=== PATIENT | male | born 1980 | race Caucasian/White ===

== ENCOUNTER 2016-05-22 19:20 | Emergency (ER) | payer SELFPAY ==
[2016-05-22] MEDS ORDERED: MORPHINE 4 MG/ML 1ML SYRINGE As Ordered ONE (21:23)
[2016-05-22] MEDS ORDERED: ONDANSETRON 4MG/2ML VIAL (J2405) As Ordered ONE (21:23)
[2016-05-22 21:24] LABS: BASO # 0.1 K/mm3 (0.0-0.2); BASO % 1.5 % (0.0-1.0); EOS # 0.1 K/mm3 (0.0-0.50); EOS % 2.1 % (0.0-3.0); LARGE UNSTAINED CELL # 0.2 K/mm3 (0.0-0.4); LARGE UNSTAINED CELL % 2.8 % (0.0-4.0); LYMPH # 1.7 K/mm3 (1.5-4.5); LYMPH % 25.8 % (24.0-44.0); MEAN CORPUSCULAR HEMOGLOBIN 29.8 pg (27.0-33.0); MEAN CORPUSCULAR HGB CONC 34.2 g/dl (32.0-36.5); MEAN CORPUSCULAR VOLUME 87.1 fl (80.0-96.0); MONO # 0.6 K/mm3 (0.0-0.8); MONO % 8.6 % (0.0-5.0); NEUTROPHILS % 59.2 % (36.0-66.0); PLATELET COUNT, AUTOMATED 292 k/mm3 (150-450); RED CELL DISTRIBUTION WIDTH 12.2 % (11.5-14.5); WHITE BLOOD COUNT 6.7 K/mm3 (4.0-10.0)
[2016-05-22 21:40] LABS: ANION GAP 9 MEQ/L (8-16); BLOOD UREA NITROGEN 12 MG/DL (7-18); CALCIUM LEVEL 8.9 MG/DL (8.5-10.1); CARBON DIOXIDE LEVEL 28 MEQ/L (21-32); CHLORIDE LEVEL 100 MEQ/L (98-107); CREATININE FOR GFR 0.97 MG/DL (0.70-1.30); GLOMERULAR FILTRATION RATE > 60.0 (>60); GLUCOSE, FASTING 100 MG/DL (70-105); POTASSIUM SERUM 4.1 MEQ/L (3.5-5.1); SODIUM LEVEL 137 MEQ/L (136-145)
[2016-05-22 21:41] LABS: ERYTHROCYTE SEDIMENTATION RATE 5 mm/hr (0-15)
[2016-05-22] MEDS ORDERED: LIDOCAINE W/EPINEPHRINE 1% 20ML VIAL As Ordered ONE (22:37)
[2016-05-22] MEDS ORDERED: HYDROmorphone HCL 1 MG/ML SYRINGE (J1170) As Ordered ONE (23:08)
[2016-05-22 23:24] LABS: SYNOVIAL FLUID COLOR RED (YELLOW)
[2016-05-22 23:32] LABS: RBC ADVIA BF 0.06; RBC CALC. BF 60000 (< 10mm3 cells/uL); WBC ADVIA BF 13.6; WBC CALC. BF 13600 cells/uL (0-20)
[2016-05-22 23:34] LABS: BF DIFF IF INDICATED? YES (NO)
[2016-05-23] MEDS ORDERED: NORCO 5/325MG TABLET (BULK) As Ordered ONE (00:14)
[2016-05-23 00:18] LABS: CC BF DIFF EXAM UNSPUN; HCT SOURCE RT KNEE
--- NOTE | 2016-05-23 00:39 | EDDOCDS ---
Physician Documentation [facility] Name: Jose Guadalupe Bah Age: 35 yrs Sex: Male : 1980 Arrival Date: 05/22/2016 Time: 19:20 Bed TR7 Private MD: Disposition: 05/23/16 00:04 Discharged to Home/Self Care. Impression: Effusion, knee - RIGHT KNEE WITH CELLULITIS. - Condition is Stable. - Discharge Instructions: Cellulitis, Knee Effusion. - Medication Reconciliation, Local Pharmacy Hours form. - Follow up: Vicente Ferrell; When: Tomorrow; Reason: Recheck today's complaints, Continuance of care. Follow up: Private Physician; When: Tomorrow; Reason: Recheck today's complaints, Continuance of care. - Problem is new. - Symptoms have improved. - Notes: CONTINUE WITH AUGMENTIN AND CLINDAMYCIN, FOLLOW UP WITH DR FERRELL OR WITH THE ORTHOPEDIC DOCTOR THAT YOU WERE REFERRED TO FROM [facility], WE ARE AWAITING RESULTS OF YOUR GRAM STAIN, RETURN TO THE ER IF THE SYMPTOMS WORSEN OR BECOME CONCERNING Historical: - Allergies: no known allergies; - Home Meds: 1. Augmentin 875-125 mg Oral tab 1 tab every 12 hours (Last dose: 05/22/2016) 2. clindamycin HCl 300 mg Oral cap every 6 hours (Last dose: 05/22/2016) 3. Motrin 800 mg Oral tab every 8 hours 4. hydromorphone 2 mg Oral tab every 6 hours - PMHx: none; - PSHx: none; - Social history: Smoking status: Patient uses tobacco products, heavy tobacco smoker. No barriers to communication noted, The patient speaks fluent [place]ine[place], Speaks appropriately for age. - Family history: Not pertinent. - : The pt / caregiver states he / she is not on anticoagulants. Home medication list is obtained from the patient. - Exposure Risk Screening:: None identified. Vital Signs: 05/22 19:22 BP 152 / 71; Pulse 88; Resp 18; Temp 96.3(O); Pulse Ox 99% on R/A; Weight 124.74 kg / sar1 275 lbs (R); Height 6 ft. 0 in. (182.88 cm); Pain 3/10; 05/23 00:12 BP 179 / 91 LA Sitting (auto/reg); Pulse 58; Resp 20 S; Temp 98.5(T); Pulse Ox 95% on cln R/A; Pain 5/10; 05/22 19:22 Body Mass Index 37.30 (124.74 kg, 182.88 cm) sar1 Procedures: 05/22 23:01 Joint aspiration: Aspiration of right knee using 18 gauge needle, Removed cloudy fluid, cs11 yellow fluid, Specimen sent to lab. Patient tolerated well. Very thick yellow material captured with slow collection - then did turn bloody.. MDM: 20:59 IV Saline Lock ordered. ck7 20:59 NS 0.9% 1000 ml IV at bolus once ordered. ck7 20:59 morphine 4 mg IVP once ordered. ck7 20:59 Ondansetron 4 mg IVP once ordered. ck7 21:00 CBC with Diff Ordered. EDMS 21:00 MED Profile Ordered. EDMS 21:00 ESR Ordered. EDMS 21:00 CRP Ordered. EDMS 21:19 [facility] ordered. ck7 21:24 [facility] [place] Order complete. tmm1 21:43 Financial registration complete. ks16 21:46 CBC with Diff Reviewed. ck7 21:46 CRP Reviewed. ck7 21:46 MED Profile Reviewed. ck7 21:46 ESR Reviewed. ck7 22:05 [facility] Payment Agreement was scanned into [employer] and attached to record. ks16 22:36 Lidocaine-Epinephrine 1 %-1:100,000 10 ml Infiltration once; to bedside ordered. ck7 23:02 Cell Count Synovial Fluid Ordered. EDMS 23:02 Body Fluid Culture And Gs - Most Sources Ordered. EDMS 23:04 Dilaudid - HYDROmorphone 0.5 mg IVP once ordered. cs11 23:35 Cell Count Synovial Fluid Reviewed. ck7 05/23 00:05 HYDROcodone-acetaminophen 4 pack- 5 mg-325 mg 1 packets PO Per package directions; ck7 Dispense with patient. 1 po q4h prn for pain ordered. 00:24 Cell Count Synovial Fluid Reviewed. ck7 Administered Medications: 05/22 21:20 Drug: NS 0.9% 1000 ml [sodium chloride 0.9 % intravenous solution] Route: IV; Rate: ttb bolus; Site: left antecubital; 21:20 Drug: Ondansetron 4 mg [ondansetron HCl 2 mg/mL intravenous solution (2 mL)] Route: ttb IVP; Site: left antecubital; 21:30 Drug: morphine 4 mg [morphine 4 mg/mL intravenous cartridge (1 mL)] Route: IVP; Site: ttb left antecubital; 22:39 Drug: Lidocaine-Epinephrine 10 ml [lidocaine-epinephrine 1 %-1:100,000 injection jmb solution (10 mL)] {Note: placed at bedside for administering provider.} Route: Infiltration; 23:03 CANCELLED (Other Intervention Used): Dilaudid - HYDROmorphone 1 mg IVP once cs11 23:11 Drug: Dilaudid - HYDROmorphone 0.5 mg [hydromorphone 1 mg/mL injection syringe (0.5 jmb mL)] Route: IVP; Site: left antecubital; 05/23 00:15 Drug: HYDROcodone-acetaminophen 4 pack- 1 packets [hydrocodone 5 mg-acetaminophen 325 ka4 mg tablet (1 tabs)] {Co-Signature: sergio (Vahid Padilla RN).} Route: PO; 00:16 Follow up: Response: Med's dispensed home ka4 Signatures: Dispatcher [employer] EDNette GregoryRN RN rs3 Kings Lange, RPA-C RPA-Cck7 Osman Abernathy, DO cs11 Gabriela Mays RN RN ttb McLear, Theresa, MICA PASTER MICA PASTER tmm1 Vahid Padilla RN RN jmb Lizbeth Rodriguez, Reg Reg ks16 Therese Bassett CHEMISTRY DEPARTMENT CHAIR ka4 Vahid hill The chart was reviewed and I authenticate all verbal orders and agree with the evaluation and treatment provided.Corrections: (The following items were deleted from the chart) 05/22 23:03 23:03 Dilaudid - HYDROmorphone 1 mg IVP once ordered. cs11 cs11 Attachments: 22:05 [facility] Payment Agreement ks16 MTDD
--- NOTE | 2016-05-23 00:40 | EDDOCDS ---
Nurse's Notes [facility] Name: Jose Guadalupe Bah Age: 35 yrs Sex: Male : 1980 Arrival Date: 05/22/2016 Time: 19:20 Bed TR7 Private MD: Diagnosis: Effusion, knee-RIGHT KNEE WITH CELLULITIS Presentation: 05/22 19:34 Presenting complaint: Patient states: Was seen in [place] ER for right knee pain. rs3 Treated for septic knee received IV antibiotic. was advised for admission. patient signed out AMA for family reasons. was sent home on clindamycin, Augmentin. unable to check in near by ER for the 2 days. here today reports increased swelling/redness/pain. Adult Sepsis Screening: The patient does not have new or worsening altered mentation. Patient's respiratory rate is less than 22. Systolic blood pressure is greater than 100. Patient has a qSOFA score of 0- Negative Sepsis Screen. Suicide/Homicide risk assessment- the patient denies having any suicidal and/or homicidal ideations and does not present with any other emotional, behavioral or mental health complaints. Status: Patient is not a elevator service mechanic or dependent. Transition of care: patient was not received from another setting of care. 19:34 Acuity: TEJAS Level 3 rs3 19:34 Method Of Arrival: Walkin/Carried/Asstd rs3 Triage Assessment: 19:43 General: Appears in no apparent distress. Pain: Location: right knee. Pt Declines HIV rs3 testing. Historical: - Allergies: no known allergies; - Home Meds: 1. Augmentin 875-125 mg Oral tab 1 tab every 12 hours (Last dose: 05/22/2016) 2. clindamycin HCl 300 mg Oral cap every 6 hours (Last dose: 05/22/2016) 3. Motrin 800 mg Oral tab every 8 hours 4. hydromorphone 2 mg Oral tab every 6 hours - PMHx: none; - PSHx: none; - Social history: Smoking status: Patient uses tobacco products, heavy tobacco smoker. No barriers to communication noted, The patient speaks fluent Yoruba, Speaks appropriately for age. - Family history: Not pertinent. - : The pt / caregiver states he / she is not on anticoagulants. Home medication list is obtained from the patient. - Exposure Risk Screening:: None identified. Screenin:30 Screening information is obtained from the patient. Fall risk: No risks identified. ttb Assistance ADL's: requires no assistance with activities of daily living. Abuse/DV Screen: The patient / caregiver reports he/she is: not in a situation that causes fear, pain or injury. Nutritional screening: No deficits noted. Advance Directives: Currently, there is no health care proxy. home support is adequate. Assessment: 21:30 General: Appears in no apparent distress, well nourished, well groomed, Behavior is ttb appropriate for age, cooperative, pleasant. Pain: Location: right knee 07/29 no radiation. Neurological: Level of Consciousness is awake, alert. Cardiovascular: Chest pain is denied. Respiratory: No deficits noted. Airway is patent Respiratory effort is even, unlabored, Denies cough, shortness of breath. GI: Denies nausea, vomiting, pain. Derm: Skin is normal. Musculoskeletal: Range of motion limited in right knee Swelling present in right knee. Injury Description: No known injury. 22:10 Reassessment: Patient appears in no apparent distress at this time. Pt resting on ttb stretcher. SO at bedside. PA speaking with MD at this time. . 23:08 Reassessment: Patient appears in no apparent distress at this time. pt in pain after ttb joint aspiration. Meds to be given. Labs sent per orders. Pt resting on stretcher with SO at bedside. Primary RN to give meds. . 23:15 General: Appears in no apparent distress, comfortable, Behavior is appropriate for age, jmb cooperative, Patient laying on stretcher with friend at bedside. Patient voices no complaints at this time. . Neurological: Level of Consciousness is awake, alert, obeys commands, Oriented to person, place, time, Speech is normal, Facial symmetry appears normal, Facial symmetry: tongue is midline. Respiratory: Airway is patent Respiratory effort is even, unlabored, Respiratory pattern is regular, symmetrical. 05/23 00:25 General: Appears in no apparent distress, comfortable, Behavior is appropriate for age, ka4 cooperative, pleasant. Respiratory: Airway is patent Respiratory effort is even, unlabored, Respiratory pattern is regular, symmetrical. Derm:. Vital Signs: 05/22 19:22 BP 152 / 71; Pulse 88; Resp 18; Temp 96.3(O); Pulse Ox 99% on R/A; Weight 124.74 kg sar1 (R); Height 6 ft. 0 in. (182.88 cm); Pain 3/10; 05/23 00:12 BP 179 / 91 LA Sitting (auto/reg); Pulse 58; Resp 20 S; Temp 98.5(T); Pulse Ox 95% on cln R/A; Pain 5/10; 05/22 19:22 Body Mass Index 37.30 (124.74 kg, 182.88 cm) [facility] Vitals: 05/22 19:22 Log In Time: May 22, 2016 at 19:22. [facility] ED Course: 19:22 Patient visited by Marisol Perez, Tooth Cutter Contact Wheel. sar1 19:22 Patient moved to Waiting sar1 19:23 Patient moved to Pre RCE sar1 19:41 Triage Initiated rs3 20:12 Patient visited by Janay Lovelace,WILLIS. ms18 20:12 Patient moved to Triage 2 ms18 20:51 Kings Lange RPA-C is PHCP. ck7 20:51 Osman Abernathy DO is Attending Physician. ck7 20:51 Patient visited by Kings Lange RPA-C. ck7 21:00 Patient moved to I3 / M3 ms18 21:20 Patient visited by Jaany Lovelace RN. ms18 21:20 CRP Sent. ms18 21:20 ESR Sent. ms18 21:20 MED Profile Sent. ms18 21:21 CBC with Diff Sent. ms18 21:21 Inserted saline lock: 18 gauge in left antecubital area and blood collected. The ms18 patient tolerated the procedure well. 21:30 The patient / caregiver is instructed regarding the plan of care and ED course. ttb Accompanied by Significant Other, Patient has correct armband on for positive identification. Placed in gown. 21:30 Labs drawn. (by ED staff). ttb 21:59 Patient visited by Kings Lange RPA-C. ck7 22:05 [facility] Payment Agreement was scanned into [employer] and attached to record. ks16 22:11 Patient visited by Gabriela Mays RN. ttb 22:44 Patient visited by Kings Lange RPA-C. ck7 23:07 Cell Count Synovial Fluid Sent. jmb 23:07 Body Fluid Culture And Gs - Most Sources Sent. jmb 23:08 Wound culture sent to lab. ttb 23:16 Patient visited by Vahid Padilla RN. jmb 23:49 Patient visited by Kings Lange RPA-C. ck7 05/23 00:03 Vicente Chowdary is Referral Physician. ck7 00:13 Patient visited by Ellie Solares PCA. cln 00:25 Patient moved to [facility] jmb 00:25 Discontinued IV lock intact, bleeding controlled, pressure dressing applied, No ka4 redness/swelling at site. No procedures done that require assistance. 00:26 Patient visited by Therese Bassett LPN. ka4 Administered Medications: 05/22 21:20 Drug: NS 0.9% 1000 ml [sodium chloride 0.9 % intravenous solution] Route: IV; Rate: ttb bolus; Site: left antecubital; 21:20 Drug: Ondansetron 4 mg [ondansetron HCl 2 mg/mL intravenous solution (2 mL)] Route: ttb IVP; Site: left antecubital; 21:30 Drug: morphine 4 mg [morphine 4 mg/mL intravenous cartridge (1 mL)] Route: IVP; Site: ttb left antecubital; 22:39 Drug: Lidocaine-Epinephrine 10 ml [lidocaine-epinephrine 1 %-1:100,000 injection jmb solution (10 mL)] {Note: placed at bedside for administering provider.} Route: Infiltration; 23:03 CANCELLED (Other Intervention Used): Dilaudid - HYDROmorphone 1 mg IVP once cs11 23:11 Drug: Dilaudid - HYDROmorphone 0.5 mg [hydromorphone 1 mg/mL injection syringe (0.5 jmb mL)] Route: IVP; Site: left antecubital; 05/23 00:15 Drug: HYDROcodone-acetaminophen 4 pack- 1 packets [hydrocodone 5 mg-acetaminophen 325 ka4 mg tablet (1 tabs)] {Co-Signature: sergio (Vahid Padilla RN).} Route: PO; 00:16 Follow up: Response: Med's dispensed home ka4 Order Results: Lab Order: CBC with Diff; SPEC'M 05/22/16 21:19 Test: WHITE BLOOD COUNT; Value: 6.7; Range: 4.0-10.0; Units: K/mm3; Status: F Test: RED BLOOD COUNT; Value: 5.32; Range: 4.30-6.10; Units: M/mm3; Status: F Test: HEMOGLOBIN; Value: 15.9; Range: 14.0-18.0; Units: g/dl; Status: F Test: HEMATOCRIT; Value: 46.4; Range: 42.0-52.0; Units: %; Status: F Test: MEAN CORPUSCULAR VOLUME; Value: 87.1; Range: 80.0-96.0; Units: fl; Status: F Test: MEAN CORPUSCULAR HEMOGLOBIN; Value: 29.8; Range: 27.0-33.0; Units: pg; Status: F Test: MEAN CORPUSCULAR HGB CONC; Value: 34.2; Range: 32.0-36.5; Units: g/dl; Status: F Test: RED CELL DISTRIBUTION WIDTH; Value: 12.2; Range: 11.5-14.5; Units: %; Status: F Test: PLATELET COUNT, AUTOMATED; Value: 292; Range: 150-450; Units: k/mm3; Status: F Test: NEUTROPHILS %; Value: 59.2; Range: 36.0-66.0; Units: %; Status: F Test: LYMPH %; Value: 25.8; Range: 24.0-44.0; Units: %; Status: F Test: MONO %; Value: 8.6; Range: 0.0-5.0; Abnormal: Above high normal; Units: %; Status: F Test: EOS %; Value: 2.1; Range: 0.0-3.0; Units: %; Status: F Test: BASO %; Value: 1.5; Range: 0.0-1.0; Abnormal: Above high normal; Units: %; Status: F Test: LARGE UNSTAINED CELL %; Value: 2.8; Range: 0.0-4.0; Units: %; Status: F Test: NEUTROPHILS #; Value: 4.0; Range: 1.8-7.7; Units: K/mm3; Status: F Test: LYMPH #; Value: 1.7; Range: 1.5-4.5; Units: K/mm3; Status: F Test: MONO #; Value: 0.6; Range: 0.0-0.8; Units: K/mm3; Status: F Test: EOS #; Value: 0.1; Range: 0.0-0.50; Units: K/mm3; Status: F Test: BASO #; Value: 0.1; Range: 0.0-0.2; Units: K/mm3; Status: F Test: LARGE UNSTAINED CELL #; Value: 0.2; Range: 0.0-0.4; Units: K/mm3; Status: F Lab Order: MED Profile; SPEC'M 05/22/16 21:19 Test: GLUCOSE, FASTING; Value: 100; Range: 70-105; Units: MG/DL; Status: F Test: BLOOD UREA NITROGEN; Value: 12; Range: 7-18; Units: MG/DL; Status: F Test: CREATININE FOR GFR; Value: 0.97; Range: 0.70-1.30; Units: MG/DL; Status: F Test: GLOMERULAR FILTRATION RATE; Value: > 60.0; Range: >60; Status: F Test: SODIUM LEVEL; Value: 137; Range: 136-145; Units: MEQ/L; Status: F Test: POTASSIUM SERUM; Value: 4.1; Range: 3.5-5.1; Units: MEQ/L; Status: F Test: CHLORIDE LEVEL; Value: 100; Range: 98-107; Units: MEQ/L; Status: F Test: CARBON DIOXIDE LEVEL; Value: 28; Range: 21-32; Units: MEQ/L; Status: F Test: ANION GAP; Value: 9; Range: 8-16; Units: MEQ/L; Status: F Test: CALCIUM LEVEL; Value: 8.9; Range: 8.5-10.1; Units: MG/DL; Status: F Test Note: ; Units are mL/min/1.73 m2 Chronic Kidney Disease Staging per NKF: Stage I & II GFR >=60 Normal to Mildly Decreased Stage III GFR 30-59 Moderately Decreased Stage IV GFR 15-29 Severely Decreased Stage V GFR <15 Very Little GFR Left ESRD GFR <15 on EDGE POLISHER Lab Order: ESR; SPEC'M 05/22/16 21:19 Test: ERYTHROCYTE SEDIMENTATION RATE; Value: 5; Range: 0-15; Units: mm/hr; Status: F Lab Order: CRP; SPEC'M 05/22/16 21:19 Test: C REACTIVE PROTEIN QUANTITATIV; Value: 2.07; Range: 0.00-0.30; Abnormal: Above high normal; Units: MG/DL; Status: F Lab Order: Cell Count Synovial Fluid; SPEC'M 05/22/16 23:05 Test: SOURCE, BODY FLUID; Value: RT KNEE; Status: F Test: SYNOVIAL FLUID COLOR; Value: RED; Range: YELLOW; Status: F Test: APPEARANCE, BODY FLUID; Value: CLOUDY; Range: CLEAR; Status: F Test: WBC CALC. BF; Value: 00173; Range: 0-20; Abnormal: Above high normal; Units: cells/uL; Status: F Test: HEMATOCRIT, BODY FLUID; Value: < 1.0; Units: %; Status: F Test: HCT SOURCE; Value: RT KNEE; Status: F Test: RBC CALC. BF; Value: 02089; Range: < 10mm3 cells/uL; Status: F Test: NEUTROPHILS, BODY FLUID; Value: 93; Units: %; Status: F Test: LYMPHOCYTES, BODY FLUID; Value: 7; Units: %; Status: F Outcome: 00:04 Discharge ordered by Provider. ck7 00:24 Discharge Assessment: Patient awake, alert and oriented x 3. No cognitive and/or ka4 functional deficits noted. Patient verbalized understanding of disposition instructions. The following High Risk Discharge criteria are identified: None. Discharged to home via wheelchair, with significant other. Condition: good Condition: stable. Discharge instructions given to patient, Instructed on discharge instructions, follow up and referral plans. medication usage, no driving heavy equipment, no drinking with medication, Demonstrated understanding of instructions, medications, Pt was receptive of discharge instructions/ teaching. Property :Personal belongings accompany Pt. 00:25 Discharge Assessment: Patient awake, alert and oriented x 3. No cognitive and/or ka4 functional deficits noted. Patient verbalized understanding of disposition instructions. patient administered narcotics - yes. Discharge Assessment: patient administered narcotics - yes. Pt provided with safe discharge. No special radiology studies were completed. 00:38 Patient left the ED. b Signatures: Nette Cartwright RN RN rs3 Kings Lange RPA-C RPA-Cck7 Gabriela Mays, RN RN Vahid Rhodes,RN RN jmb Therese Bassett,RAILWAY SIGNAL TECHNICIAN RAILWAY SIGNAL TECHNICIAN ka4 Janay Lovelace,RN RN ms18 Marisol Perez, Tooth Cutter Contact Wheel Unit sar1 Lizbeth Rodriguez, Reg Reg ks16 Sujatha, Crystal, ICU MANAGER ICU MANAGER cln Osman Abernathy DO cs11 Vahid hill MTDD
--- NOTE | 2016-05-25 01:39 | EDDOCDS ---
Physician Documentation [facility] Name: Jose Guadalupe Bah Age: 35 yrs Sex: Male : 1980 Arrival Date: 05/22/2016 Time: 19:20 Bed TR7 Private MD: Disposition: 05/23/16 00:04 Discharged to Home/Self Care. Impression: Effusion, knee - RIGHT KNEE WITH CELLULITIS. - Condition is Stable. - Discharge Instructions: Cellulitis, Knee Effusion. - Medication Reconciliation, Local Pharmacy Hours form. - Follow up: Vicente Ferrell; When: Tomorrow; Reason: Recheck today's complaints, Continuance of care. Follow up: Private Physician; When: Tomorrow; Reason: Recheck today's complaints, Continuance of care. - Problem is new. - Symptoms have improved. - Notes: CONTINUE WITH AUGMENTIN AND CLINDAMYCIN, FOLLOW UP WITH DR FERRELL OR WITH THE ORTHOPEDIC DOCTOR THAT YOU WERE REFERRED TO FROM [facility], WE ARE AWAITING RESULTS OF YOUR GRAM STAIN, RETURN TO THE ER IF THE SYMPTOMS WORSEN OR BECOME CONCERNING Historical: - Allergies: no known allergies; - Home Meds: 1. Augmentin 875-125 mg Oral tab 1 tab every 12 hours (Last dose: 05/22/2016) 2. clindamycin HCl 300 mg Oral cap every 6 hours (Last dose: 05/22/2016) 3. Motrin 800 mg Oral tab every 8 hours 4. hydromorphone 2 mg Oral tab every 6 hours - PMHx: none; - PSHx: none; - Social history: Smoking status: Patient uses tobacco products, heavy tobacco smoker. No barriers to communication noted, The patient speaks fluent Jamaican, Speaks appropriately for age. - Family history: Not pertinent. - : The pt / caregiver states he / she is not on anticoagulants. Home medication list is obtained from the patient. - Exposure Risk Screening:: None identified. Vital Signs: 05/22 19:22 BP 152 / 71; Pulse 88; Resp 18; Temp 96.3(O); Pulse Ox 99% on R/A; Weight 124.74 kg / sar1 275 lbs (R); Height 6 ft. 0 in. (182.88 cm); Pain 3/10; 05/23 00:12 BP 179 / 91 LA Sitting (auto/reg); Pulse 58; Resp 20 S; Temp 98.5(T); Pulse Ox 95% on cln R/A; Pain 5/10; 05/22 19:22 Body Mass Index 37.30 (124.74 kg, 182.88 cm) sar1 Procedures: 05/22 23:01 Joint aspiration: Aspiration of right knee using 18 gauge needle, Removed cloudy fluid, cs11 yellow fluid, Specimen sent to lab. Patient tolerated well. Very thick yellow material captured with slow collection - then did turn bloody.. MDM: 20:59 IV Saline Lock ordered. ck7 20:59 NS 0.9% 1000 ml IV at bolus once ordered. ck7 20:59 morphine 4 mg IVP once ordered. ck7 20:59 Ondansetron 4 mg IVP once ordered. ck7 21:00 CBC with Diff Ordered. EDMS 21:00 MED Profile Ordered. EDMS 21:00 ESR Ordered. EDMS 21:00 CRP Ordered. EDMS 21:19 [facility] Order ordered. ck7 21:24 [facility] Covers Inspector Order complete. tmm1 21:43 Financial registration complete. ks16 21:46 CBC with Diff Reviewed. ck7 21:46 CRP Reviewed. ck7 21:46 MED Profile Reviewed. ck7 21:46 ESR Reviewed. ck7 22:05 [facility] Payment Agreement was scanned into [employer] and attached to record. ks16 22:36 Lidocaine-Epinephrine 1 %-1:100,000 10 ml Infiltration once; to bedside ordered. ck7 23:02 Cell Count Synovial Fluid Ordered. EDMS 23:02 Body Fluid Culture And Gs - Most Sources Ordered. EDMS 23:04 Dilaudid - HYDROmorphone 0.5 mg IVP once ordered. cs11 23:35 Cell Count Synovial Fluid Reviewed. ck7 05/23 00:05 HYDROcodone-acetaminophen 4 pack- 5 mg-325 mg 1 packets PO Per package directions; ck7 Dispense with patient. 1 po q4h prn for pain ordered. 00:24 Cell Count Synovial Fluid Reviewed. ck7 05:04 T-Sheet-- Draft Copy was scanned into [employer] and attached to record. hs2 Administered Medications: 05/22 21:20 Drug: NS 0.9% 1000 ml [sodium chloride 0.9 % intravenous solution] Route: IV; Rate: ttb bolus; Site: left antecubital; 21:20 Drug: Ondansetron 4 mg [ondansetron HCl 2 mg/mL intravenous solution (2 mL)] Route: ttb IVP; Site: left antecubital; 21:30 Drug: morphine 4 mg [morphine 4 mg/mL intravenous cartridge (1 mL)] Route: IVP; Site: ttb left antecubital; 22:39 Drug: Lidocaine-Epinephrine 10 ml [lidocaine-epinephrine 1 %-1:100,000 injection jmb solution (10 mL)] {Note: placed at bedside for administering provider.} Route: Infiltration; 23:03 CANCELLED (Other Intervention Used): Dilaudid - HYDROmorphone 1 mg IVP once cs11 23:11 Drug: Dilaudid - HYDROmorphone 0.5 mg [hydromorphone 1 mg/mL injection syringe (0.5 jmb mL)] Route: IVP; Site: left antecubital; 05/23 00:15 Drug: HYDROcodone-acetaminophen 4 pack- 1 packets [hydrocodone 5 mg-acetaminophen 325 ka4 mg tablet (1 tabs)] {Co-Signature: sergio (Vahid Padilla RN).} Route: PO; 00:16 Follow up: Response: Med's dispensed home ka4 Signatures: Dispatcher [employer] Nette Flowers,RN RN rs3 Kings Lange, RPA-C RPA-Cck7 Osman Abernathy, DO cs11 Gabriela Mays RN RN ttb McLear, Theresa, [employer] GOL[employer] REPAIRERS [employer] REPAIR[employer] tmm1 Vahid Padilla RN RN jmb Lizbeth Rodriguez, Reg Reg ks16 Shanika Hooks, Reg Reg hs2 Therese Bassett MECHANICAL INTERN ka4 Vahid hill The chart was reviewed and I authenticate all verbal orders and agree with the evaluation and treatment provided.Corrections: (The following items were deleted from the chart) 05/22 23:03 23:03 Dilaudid - HYDROmorphone 1 mg IVP once ordered. cs11 cs11 Attachments: 22:05 [facility] Payment Agreement ks16 05/23 05:04 T-Sheet-- Draft Copy hs2 Chart Complete MTDD
--- NOTE | 2016-05-25 01:39 | EDDOCDS ---
Physician Documentation [facility] Name: Jose Guadalupe Bah Age: 35 yrs Sex: Male : 1980 Arrival Date: 05/22/2016 Time: 19:20 Bed TR7 Private MD: Disposition: 05/23/16 00:04 Discharged to Home/Self Care. Impression: Effusion, knee - RIGHT KNEE WITH CELLULITIS. - Condition is Stable. - Discharge Instructions: Cellulitis, Knee Effusion. - Medication Reconciliation, Local Pharmacy Hours form. - Follow up: Vicente Frerell; When: Tomorrow; Reason: Recheck today's complaints, Continuance of care. Follow up: Private Physician; When: Tomorrow; Reason: Recheck today's complaints, Continuance of care. - Problem is new. - Symptoms have improved. - Notes: CONTINUE WITH AUGMENTIN AND CLINDAMYCIN, FOLLOW UP WITH DR FERRELL OR WITH THE ORTHOPEDIC DOCTOR THAT YOU WERE REFERRED TO FROM [facility], WE ARE AWAITING RESULTS OF YOUR GRAM STAIN, RETURN TO THE ER IF THE SYMPTOMS WORSEN OR BECOME CONCERNING Historical: - Allergies: no known allergies; - Home Meds: 1. Augmentin 875-125 mg Oral tab 1 tab every 12 hours (Last dose: 05/22/2016) 2. clindamycin HCl 300 mg Oral cap every 6 hours (Last dose: 05/22/2016) 3. Motrin 800 mg Oral tab every 8 hours 4. hydromorphone 2 mg Oral tab every 6 hours - PMHx: none; - PSHx: none; - Social history: Smoking status: Patient uses tobacco products, heavy tobacco smoker. No barriers to communication noted, The patient speaks fluent Eritrean, Speaks appropriately for age. - Family history: Not pertinent. - : The pt / caregiver states he / she is not on anticoagulants. Home medication list is obtained from the patient. - Exposure Risk Screening:: None identified. Vital Signs: 05/22 19:22 BP 152 / 71; Pulse 88; Resp 18; Temp 96.3(O); Pulse Ox 99% on R/A; Weight 124.74 kg / sar1 275 lbs (R); Height 6 ft. 0 in. (182.88 cm); Pain 3/10; 05/23 00:12 BP 179 / 91 LA Sitting (auto/reg); Pulse 58; Resp 20 S; Temp 98.5(T); Pulse Ox 95% on cln R/A; Pain 5/10; 05/22 19:22 Body Mass Index 37.30 (124.74 kg, 182.88 cm) sar1 Procedures: 05/22 23:01 Joint aspiration: Aspiration of right knee using 18 gauge needle, Removed cloudy fluid, cs11 yellow fluid, Specimen sent to lab. Patient tolerated well. Very thick yellow material captured with slow collection - then did turn bloody.. MDM: 20:59 IV Saline Lock ordered. ck7 20:59 NS 0.9% 1000 ml IV at bolus once ordered. ck7 20:59 morphine 4 mg IVP once ordered. ck7 20:59 Ondansetron 4 mg IVP once ordered. ck7 21:00 CBC with Diff Ordered. EDMS 21:00 MED Profile Ordered. EDMS 21:00 ESR Ordered. EDMS 21:00 CRP Ordered. ED[facility] ck7 21:24 [facility]inter Order complete. tmm1 21:43 Financial registration complete. ks16 21:46 CBC with Diff Reviewed. ck7 21:46 CRP Reviewed. ck7 21:46 MED Profile Reviewed. ck7 21:46 ESR Reviewed. ck7 22:05 [facility] Payment Agreement was scanned into ViewReple and attached to record. ks16 22:36 Lidocaine-Epinephrine 1 %-1:100,000 10 ml Infiltration once; to bedside ordered. ck7 23:02 Cell Count Synovial Fluid Ordered. EDMS 23:02 Body Fluid Culture And Gs - Most Sources Ordered. EDMS 23:04 Dilaudid - HYDROmorphone 0.5 mg IVP once ordered. cs11 23:35 Cell Count Synovial Fluid Reviewed. ck7 05/23 00:05 HYDROcodone-acetaminophen 4 pack- 5 mg-325 mg 1 packets PO Per package directions; ck7 Dispense with patient. 1 po q4h prn for pain ordered. 00:24 Cell Count Synovial Fluid Reviewed. ck7 05:04 T-Sheet-- Draft Copy was scanned into View[employer] and attached to record. hs2 Administered Medications: 05/22 21:20 Drug: NS 0.9% 1000 ml [sodium chloride 0.9 % intravenous solution] Route: IV; Rate: ttb bolus; Site: left antecubital; 21:20 Drug: Ondansetron 4 mg [ondansetron HCl 2 mg/mL intravenous solution (2 mL)] Route: ttb IVP; Site: left antecubital; 21:30 Drug: morphine 4 mg [morphine 4 mg/mL intravenous cartridge (1 mL)] Route: IVP; Site: ttb left antecubital; 22:39 Drug: Lidocaine-Epinephrine 10 ml [lidocaine-epinephrine 1 %-1:100,000 injection jmb solution (10 mL)] {Note: placed at bedside for administering provider.} Route: Infiltration; 23:03 CANCELLED (Other Intervention Used): Dilaudid - HYDROmorphone 1 mg IVP once cs11 23:11 Drug: Dilaudid - HYDROmorphone 0.5 mg [hydromorphone 1 mg/mL injection syringe (0.5 jmb mL)] Route: IVP; Site: left antecubital; 05/23 00:15 Drug: HYDROcodone-acetaminophen 4 pack- 1 packets [hydrocodone 5 mg-acetaminophen 325 ka4 mg tablet (1 tabs)] {Co-Signature: sergio (Vahid Padilla RN).} Route: PO; 00:16 Follow up: Response: Med's dispensed home ka4 Signatures: Dispatcher [employer] Nette Flowers,RN RN rs3 Kings Lange, RPA-C RPA-Cck7 Osman Abernathy, DO cs11 Gabriela Mays RN RN ttb McLear, Theresa, TOOL DESIGN DRAFTSPERSON TOOL DESIGN DRAFTSPERSON tmm1 Vahid Padilla RN RN jmb Lizbeth Rodriguez, Reg Reg ks16 Shanika Hooks, Reg Reg hs2 Therese Bassett DESKIDDING MACHINE OPERATOR ka4 Vahid hill The chart was reviewed and I authenticate all verbal orders and agree with the evaluation and treatment provided.Corrections: (The following items were deleted from the chart) 05/22 23:03 23:03 Dilaudid - HYDROmorphone 1 mg IVP once ordered. cs11 cs11 Attachments: 22:05 [facility] Payment Agreement ks16 05/23 05:04 T-Sheet-- Draft Copy hs2 Chart Complete MTDD
--- NOTE | 2016-05-25 01:40 | EDDOCDS ---
Nurse's Notes [facility] Name: Jose Guadalupe Bah Age: 35 yrs Sex: Male : 1980 Arrival Date: 05/22/2016 Time: 19:20 Bed TR7 Private MD: Diagnosis: Effusion, knee-RIGHT KNEE WITH CELLULITIS Presentation: 05/22 19:34 Presenting complaint: Patient states: Was seen in [place] ER for right knee pain. rs3 Treated for septic knee received IV antibiotic. was advised for admission. patient signed out AMA for family reasons. was sent home on clindamycin, Augmentin. unable to check in near by ER for the 2 days. here today reports increased swelling/redness/pain. Adult Sepsis Screening: The patient does not have new or worsening altered mentation. Patient's respiratory rate is less than 22. Systolic blood pressure is greater than 100. Patient has a qSOFA score of 0- Negative Sepsis Screen. Suicide/Homicide risk assessment- the patient denies having any suicidal and/or homicidal ideations and does not present with any other emotional, behavioral or mental health complaints. Status: Patient is not a inpatient services rn or dependent. Transition of care: patient was not received from another setting of care. 19:34 Acuity: TEJAS Level 3 rs3 19:34 Method Of Arrival: Walkin/Carried/Asstd rs3 Triage Assessment: 19:43 General: Appears in no apparent distress. Pain: Location: right knee. Pt Declines HIV rs3 testing. Historical: - Allergies: no known allergies; - Home Meds: 1. Augmentin 875-125 mg Oral tab 1 tab every 12 hours (Last dose: 05/22/2016) 2. clindamycin HCl 300 mg Oral cap every 6 hours (Last dose: 05/22/2016) 3. Motrin 800 mg Oral tab every 8 hours 4. hydromorphone 2 mg Oral tab every 6 hours - PMHx: none; - PSHx: none; - Social history: Smoking status: Patient uses tobacco products, heavy tobacco smoker. No barriers to communication noted, The patient speaks fluent French, Speaks appropriately for age. - Family history: Not pertinent. - : The pt / caregiver states he / she is not on anticoagulants. Home medication list is obtained from the patient. - Exposure Risk Screening:: None identified. Screenin:30 Screening information is obtained from the patient. Fall risk: No risks identified. ttb Assistance ADL's: requires no assistance with activities of daily living. Abuse/DV Screen: The patient / caregiver reports he/she is: not in a situation that causes fear, pain or injury. Nutritional screening: No deficits noted. Advance Directives: Currently, there is no health care proxy. home support is adequate. Assessment: 21:30 General: Appears in no apparent distress, well nourished, well groomed, Behavior is ttb appropriate for age, cooperative, pleasant. Pain: Location: right knee 07/29 no radiation. Neurological: Level of Consciousness is awake, alert. Cardiovascular: Chest pain is denied. Respiratory: No deficits noted. Airway is patent Respiratory effort is even, unlabored, Denies cough, shortness of breath. GI: Denies nausea, vomiting, pain. Derm: Skin is normal. Musculoskeletal: Range of motion limited in right knee Swelling present in right knee. Injury Description: No known injury. 22:10 Reassessment: Patient appears in no apparent distress at this time. Pt resting on ttb stretcher. SO at bedside. PA speaking with MD at this time. . 23:08 Reassessment: Patient appears in no apparent distress at this time. pt in pain after ttb joint aspiration. Meds to be given. Labs sent per orders. Pt resting on stretcher with SO at bedside. Primary RN to give meds. . 23:15 General: Appears in no apparent distress, comfortable, Behavior is appropriate for age, jmb cooperative, Patient laying on stretcher with friend at bedside. Patient voices no complaints at this time. . Neurological: Level of Consciousness is awake, alert, obeys commands, Oriented to person, place, time, Speech is normal, Facial symmetry appears normal, Facial symmetry: tongue is midline. Respiratory: Airway is patent Respiratory effort is even, unlabored, Respiratory pattern is regular, symmetrical. 05/23 00:25 General: Appears in no apparent distress, comfortable, Behavior is appropriate for age, ka4 cooperative, pleasant. Respiratory: Airway is patent Respiratory effort is even, unlabored, Respiratory pattern is regular, symmetrical. Derm:. Vital Signs: 05/22 19:22 BP 152 / 71; Pulse 88; Resp 18; Temp 96.3(O); Pulse Ox 99% on R/A; Weight 124.74 kg sar1 (R); Height 6 ft. 0 in. (182.88 cm); Pain 3/10; 05/23 00:12 BP 179 / 91 LA Sitting (auto/reg); Pulse 58; Resp 20 S; Temp 98.5(T); Pulse Ox 95% on cln R/A; Pain 5/10; 05/22 19:22 Body Mass Index 37.30 (124.74 kg, 182.88 cm) [facility] Vitals: 05/22 19:22 Log In Time: May 22, 2016 at 19:22. [facility] ED Course: 19:22 Patient visited by Marisol Perez, Drapery And Upholstery Measurer. sar1 19:22 Patient moved to Waiting sar1 19:23 Patient moved to Pre RCE sar1 19:41 Triage Initiated rs3 20:12 Patient visited by Janay Lovelace,WILLIS. ms18 20:12 Patient moved to Triage 2 ms18 20:51 Kings Lange RPA-C is PHCP. ck7 20:51 Osman Abernathy DO is Attending Physician. ck7 20:51 Patient visited by Kings Lange RPA-C. ck7 21:00 Patient moved to I3 / M3 ms18 21:20 Patient visited by Janay Lovelace RN. ms18 21:20 CRP Sent. ms18 21:20 ESR Sent. ms18 21:20 MED Profile Sent. ms18 21:21 CBC with Diff Sent. ms18 21:21 Inserted saline lock: 18 gauge in left antecubital area and blood collected. The ms18 patient tolerated the procedure well. 21:30 The patient / caregiver is instructed regarding the plan of care and ED course. ttb Accompanied by Significant Other, Patient has correct armband on for positive identification. Placed in gown. 21:30 Labs drawn. (by ED staff). ttb 21:59 Patient visited by Kings Lange RPA-C. ck7 22:05 [facility] Payment Agreement was scanned into Grovo and attached to record. ks16 22:11 Patient visited by Gabriela Mays RN. ttb 22:44 Patient visited by Kings Lange RPA-C. ck7 23:07 Cell Count Synovial Fluid Sent. jmb 23:07 Body Fluid Culture And Gs - Most Sources Sent. jmb 23:08 Wound culture sent to lab. ttb 23:16 Patient visited by Vahid Padilla,WILLIS. jmb 23:49 Patient visited by Kings Lange RPA-C. ck7 05/23 00:03 Vicente Chowdary is Referral Physician. ck7 00:13 Patient visited by Ellie Solares PCA. cln 00:25 Patient moved to 7 jmb 00:25 Discontinued IV lock intact, bleeding controlled, pressure dressing applied, No ka4 redness/swelling at site. No procedures done that require assistance. 00:26 Patient visited by Therese Bassett LPN. ka4 05:04 T-Sheet-- Draft Copy was scanned into Grovo and attached to record. hs2 Administered Medications: 05/22 21:20 Drug: NS 0.9% 1000 ml [sodium chloride 0.9 % intravenous solution] Route: IV; Rate: ttb bolus; Site: left antecubital; 21:20 Drug: Ondansetron 4 mg [ondansetron HCl 2 mg/mL intravenous solution (2 mL)] Route: ttb IVP; Site: left antecubital; 21:30 Drug: morphine 4 mg [morphine 4 mg/mL intravenous cartridge (1 mL)] Route: IVP; Site: ttb left antecubital; 22:39 Drug: Lidocaine-Epinephrine 10 ml [lidocaine-epinephrine 1 %-1:100,000 injection jmb solution (10 mL)] {Note: placed at bedside for administering provider.} Route: Infiltration; 23:03 CANCELLED (Other Intervention Used): Dilaudid - HYDROmorphone 1 mg IVP once cs11 23:11 Drug: Dilaudid - HYDROmorphone 0.5 mg [hydromorphone 1 mg/mL injection syringe (0.5 jmb mL)] Route: IVP; Site: left antecubital; 05/23 00:15 Drug: HYDROcodone-acetaminophen 4 pack- 1 packets [hydrocodone 5 mg-acetaminophen 325 ka4 mg tablet (1 tabs)] {Co-Signature: sergio (Vahid Padilla RN).} Route: PO; 00:16 Follow up: Response: Med's dispensed home ka4 Order Results: Lab Order: CBC with Diff; SPEC'M 05/22/16 21:19 Test: WHITE BLOOD COUNT; Value: 6.7; Range: 4.0-10.0; Units: K/mm3; Status: F Test: RED BLOOD COUNT; Value: 5.32; Range: 4.30-6.10; Units: M/mm3; Status: F Test: HEMOGLOBIN; Value: 15.9; Range: 14.0-18.0; Units: g/dl; Status: F Test: HEMATOCRIT; Value: 46.4; Range: 42.0-52.0; Units: %; Status: F Test: MEAN CORPUSCULAR VOLUME; Value: 87.1; Range: 80.0-96.0; Units: fl; Status: F Test: MEAN CORPUSCULAR HEMOGLOBIN; Value: 29.8; Range: 27.0-33.0; Units: pg; Status: F Test: MEAN CORPUSCULAR HGB CONC; Value: 34.2; Range: 32.0-36.5; Units: g/dl; Status: F Test: RED CELL DISTRIBUTION WIDTH; Value: 12.2; Range: 11.5-14.5; Units: %; Status: F Test: PLATELET COUNT, AUTOMATED; Value: 292; Range: 150-450; Units: k/mm3; Status: F Test: NEUTROPHILS %; Value: 59.2; Range: 36.0-66.0; Units: %; Status: F Test: LYMPH %; Value: 25.8; Range: 24.0-44.0; Units: %; Status: F Test: MONO %; Value: 8.6; Range: 0.0-5.0; Abnormal: Above high normal; Units: %; Status: F Test: EOS %; Value: 2.1; Range: 0.0-3.0; Units: %; Status: F Test: BASO %; Value: 1.5; Range: 0.0-1.0; Abnormal: Above high normal; Units: %; Status: F Test: LARGE UNSTAINED CELL %; Value: 2.8; Range: 0.0-4.0; Units: %; Status: F Test: NEUTROPHILS #; Value: 4.0; Range: 1.8-7.7; Units: K/mm3; Status: F Test: LYMPH #; Value: 1.7; Range: 1.5-4.5; Units: K/mm3; Status: F Test: MONO #; Value: 0.6; Range: 0.0-0.8; Units: K/mm3; Status: F Test: EOS #; Value: 0.1; Range: 0.0-0.50; Units: K/mm3; Status: F Test: BASO #; Value: 0.1; Range: 0.0-0.2; Units: K/mm3; Status: F Test: LARGE UNSTAINED CELL #; Value: 0.2; Range: 0.0-0.4; Units: K/mm3; Status: F Lab Order: MED Profile; SPEC'M 05/22/16 21:19 Test: GLUCOSE, FASTING; Value: 100; Range: 70-105; Units: MG/DL; Status: F Test: BLOOD UREA NITROGEN; Value: 12; Range: 7-18; Units: MG/DL; Status: F Test: CREATININE FOR GFR; Value: 0.97; Range: 0.70-1.30; Units: MG/DL; Status: F Test: GLOMERULAR FILTRATION RATE; Value: > 60.0; Range: >60; Status: F Test: SODIUM LEVEL; Value: 137; Range: 136-145; Units: MEQ/L; Status: F Test: POTASSIUM SERUM; Value: 4.1; Range: 3.5-5.1; Units: MEQ/L; Status: F Test: CHLORIDE LEVEL; Value: 100; Range: 98-107; Units: MEQ/L; Status: F Test: CARBON DIOXIDE LEVEL; Value: 28; Range: 21-32; Units: MEQ/L; Status: F Test: ANION GAP; Value: 9; Range: 8-16; Units: MEQ/L; Status: F Test: CALCIUM LEVEL; Value: 8.9; Range: 8.5-10.1; Units: MG/DL; Status: F Test Note: ; Units are mL/min/1.73 m2 Chronic Kidney Disease Staging per NKF: Stage I & II GFR >=60 Normal to Mildly Decreased Stage III GFR 30-59 Moderately Decreased Stage IV GFR 15-29 Severely Decreased Stage V GFR <15 Very Little GFR Left ESRD GFR <15 on CHALK MACHINE OPERATOR Lab Order: ESR; SPEC'M 05/22/16 21:19 Test: ERYTHROCYTE SEDIMENTATION RATE; Value: 5; Range: 0-15; Units: mm/hr; Status: F Lab Order: CRP; SPEC'M 05/22/16 21:19 Test: C REACTIVE PROTEIN QUANTITATIV; Value: 2.07; Range: 0.00-0.30; Abnormal: Above high normal; Units: MG/DL; Status: F Lab Order: Cell Count Synovial Fluid; SPEC'M 05/22/16 23:05 Test: SOURCE, BODY FLUID; Value: RT KNEE; Status: F Test: SYNOVIAL FLUID COLOR; Value: RED; Range: YELLOW; Status: F Test: APPEARANCE, BODY FLUID; Value: CLOUDY; Range: CLEAR; Status: F Test: WBC CALC. BF; Value: [id number]; Range: 0-20; Abnormal: Above high normal; Units: cells/uL; Status: F Test: HEMATOCRIT, BODY FLUID; Value: < 1.0; Units: %; Status: F Test: HCT SOURCE; Value: RT KNEE; Status: F Test: RBC CALC. BF; Value: [id number]; Range: < 10mm3 cells/uL; Status: F Test: NEUTROPHILS, BODY FLUID; Value: 93; Units: %; Status: F Test: LYMPHOCYTES, BODY FLUID; Value: 7; Units: %; Status: F Lab Order: Body Fluid Culture And Gs - Most Sources; SPECM 05/22/16 23:05 Test: GRAM STAIN; Value: GRAM STAIN RESULT; Status: F Test: GRAM STAIN; Value: MANY WBCS; Status: F Test: GRAM STAIN; Value: NO ORGANISMS SEEN; Status: F Outcome: 00:04 Discharge ordered by Provider. ck7 00:24 Discharge Assessment: Patient awake, alert and oriented x 3. No cognitive and/or ka4 functional deficits noted. Patient verbalized understanding of disposition instructions. The following High Risk Discharge criteria are identified: None. Discharged to home via wheelchair, with significant other. Condition: good Condition: stable. Discharge instructions given to patient, Instructed on discharge instructions, follow up and referral plans. medication usage, no driving heavy equipment, no drinking with medication, Demonstrated understanding of instructions, medications, Pt was receptive of discharge instructions/ teaching. Property :Personal belongings accompany Pt. 00:25 Discharge Assessment: Patient awake, alert and oriented x 3. No cognitive and/or ka4 functional deficits noted. Patient verbalized understanding of disposition instructions. patient administered narcotics - yes. Discharge Assessment: patient administered narcotics - yes. Pt provided with safe discharge. No special radiology studies were completed. 00:38 Patient left the ED. sergio Signatures: Nette Cartwright,RN RN rs3 Kings Lange, RPA-C RPA-Cck7 Gabriela Mays RN RN Vahid Rhodes RN RN Therese Rodriguez LPN DENTAL MECHANIC ka4 Janay Lovelace RN RN ms18 Marisol Perez, Drapery And Upholstery Measurer Unit sar1 Lizbeth Rodriguez, Reg Reg ks16 Shanika Hooks, Reg Reg hs2 Ellie Solares, RUDY DATA COORDINATOR Osman Martinez DO cs11 Vahid hill Chart Complete MTDAriana
== END 2016-05-23 00:38 | disposition home or self-care (01) ==
LOC: M ED 19:20
DX: M25.461 Effusion, right knee (principal); L03.115 Cellulitis of right lower limb; Z72.0 Tobacco use
CPT/HCPCS: 20610; 36415; 80048; 85013; 85025; 85652; 86140; 87070; 87205; 89051; 96374; 96375; 99284; J1170; J2405